=== PATIENT | female | born 1995 | race Caucasian/White ===

== ENCOUNTER 2020-09-29 13:05 | Emergency (ER) | payer MEDICAID, SELFPAY ==
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
[2020-09-29 13:21] VITALS: BP 138/62; PULSE 71; RESP 16; TEMP 36.2; O2SAT 100; BMI 40.8
[2020-09-29 14:19] LABS: MANUAL DIFF FLAG NO
[2020-09-29 14:20] LABS: Basophils Percent Auto 0.2 % (0-2); Eosinophils Absolute Auto 0.2 X10*3/uL (0.0-0.4); Eosinophils Percent Auto 1.6 % (0-4); Hematocrit 31.9 % (37-47); Hemoglobin 10.1 g/dl (12.0-16.0); Imm Gran Abs Auto 0.03 X10*3/uL (0.00-0.03); Imm Gran Pct Auto 0.3 % (0.0-0.4); Lymphocytes Percent Auto 21.3 % (20-40); Mean Corpuscular HGB Conc 31.7 g/dl (31.0-35.0); Mean Corpuscular Volume 75.8 fL (80-98); Mean Platelet Volume 9.5 fL (9.4-12.3); Monocytes Absolute Auto 0.6 X10*3/uL (0.1-1.2); Monocytes Percent Auto 6.5 % (2-11); Neutrophils Absolute Auto 6.4 X10*3/uL (2.0-8.3); Neutrophils Percent Auto 70.1 % (45-73); Platelet Count 280 X10*3/uL (160-400); Red Blood Count 4.21 X10*6/uL (4.20-5.50); Red Cell Distribution Width 15.9 % (11.0-16.0); White Blood Count 9.1 X10*3/uL (4.8-10.8)
[2020-09-29] MEDS: 0.9 % Sodium Chloride 1,000 ML 999 ML IV (14:22)
[2020-09-29 14:28] LABS: INTERNATIONAL NORM RATIO 1.2 (0.9-1.1); Prothrombin Time 14.1 SEC (9.9-13.0)
[2020-09-29 14:30] LABS: Partial Thromboplastin Time 38.3 SEC (24.1-38.0)
[2020-09-29 14:51] LABS: Alanine Aminotransferase 12 U/L (0-31); Albumin Level 3.7 g/dL (3.5-5.0); Alkaline Phosphatase 79 U/L (39-117); Anion Gap 12 (12-20); Aspartate Amino Transferase 11 U/L (5-31); Bilirubin Total 0.8 mg/dL (0.0-1.0); Blood Urea Nitrogen 13 mg/dL (9-16); Calcium 9.3 mg/dL (8.4-10.2); Carbon Dioxide 24 mmol/L (22-29); Chloride 109 mmol/L (96-108); Creatinine Clr Calc Pharmacy 184.8; Estimated Glomerular Filt Rate > 60; Glucose Random 96 mg/dL (60-115); Potassium 3.9 mmol/L (3.3-5.1); Sodium 141 mmol/L (135-145); Total Protein 7.5 g/dL (6.5-8.0)
[2020-09-29 14:57] LABS: HCG Quantitative < 2 mIU/mL
[2020-09-29] MEDS: Morphine Sulfate 2 MG/ML CARTRIDGE IVPUSH (15:27)
[2020-09-29] MEDS: iohexoL 350 MG/ML 100 ML INFUS..BTL IV (15:29)
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
[2020-09-29 17:09] LABS: Glucose Urine UA NEG (NEG); Leukocyte Esterase Urine NEG (NEG); Nitrite Urine NEG (NEG); Specific Gravity - Urine <= 1.005 (1.005-1.025); Urine Blood 3+ (NEG); Urine Ketones NEG (NEG); Urine Protein NEG (NEG-TRACE)
[2020-09-29 17:10] LABS: Appearance Urine HAZY; Color Urine STRAW
[2020-09-29 17:17] LABS: Squamous Epithelial Cell Urine 1+ /LPF; WBC Urine 0-2 /HPF (0-4)
[2020-09-29 18:31] VITALS: BP 122/74; PULSE 88; RESP 18
== END 2020-09-29 18:32 | disposition home or self-care (01) ==
PROVIDERS: Physician Assistant; Emergency Provider Emergency Medicine; PCP Internal Medicine
DX: S30.1XXD Contusion of abdominal wall, subsequent encounter (principal); S32.591D Other specified fracture of right pubis, subsequent encounter for fracture with routine healing; V89.2XXD Person injured in unspecified motor-vehicle accident, traffic, subsequent encounter
CPT/HCPCS: 36415; 74177; 80053; 81001; 84702; 85025; 85610; 85730; 96361; 96374; 99284; J2270; Q9967

== ENCOUNTER → 2020-10-08 11:38 | Outpatient (REF) | payer MEDICAID, SELFPAY ==
--- NOTE | 2020-10-08 11:45 | ECG_ITS ---
Hook-up date: 2020-10-08 12:05:00 Duration: 26:59:00 Test Indications: SYNCOPE Medications: [id number] QRS complexes 2 Ventricular ectopics which represent <1 % of total QRS comp. 1 Supraventricular ectopics which represent <1 % of total QRS comp. * Paced QRS complexs which represent % of total QRS comp. VENTRICULAR ECTOPY 2 Isolated 0 Bigeminal Cycles 0 Couplets 0 Runs 0 Beats in Runs * Beats LONGEST at * BPM at :: -- * Beats FASTEST at * BPM at :: -- SUPRAVENTRICULAR ECTOPY 1 Isolated 0 Couplets 0 Runs 0 Beats in Runs * Beats LONGEST at * BPM at :: -- * Beats FASTEST at * BPM at :: -- HEART RATES 51 MIN at 08:22:44 2020-10-09 85 AVG 152 MAX at 18:18:13 2020-10-08 LONGEST RR 1.4240 secs at 06:50:08 2020-10-09 S-T LEVELS Channel 1 - 128 mm at 12:05:00 2020-10-08 - 128 mm at 12:05:00 2020-10-08 Channel 2 - 128 mm at 12:05:00 2020-10-08 - 128 mm at 12:05:00 2020-10-08 Channel 3 - 128 mm at 03:12:41 -- - 128 mm at 03:12:41 Basic rhythm Normal sinus rhythm No long pause or profound bradycardia No dangerous dysrhythm periods Patient did not report any symptoms in the diary Referred By: Amna Monteiro Overread By: EVAN ROPER MD
== END ==
LOC: HO.CARD 11:38
PROVIDERS: Visit Provider Internal Medicine
DX: R55 Syncope and collapse (principal)
CPT/HCPCS: 93225; 93226

== ENCOUNTER 2020-11-04 10:09 | Outpatient (REF) | payer MEDICAID, SELFPAY ==
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
== END 2020-11-04 10:10 | disposition home or self-care (01) ==
LOC: HO.CT 10:09
PROVIDERS: Visit Provider Internal Medicine
DX: R55 Syncope and collapse (principal)
CPT/HCPCS: 70450

== ENCOUNTER 2020-12-03 13:12 | Outpatient (REF) | payer MEDICAID, SELFPAY ==
--- NOTE | 2020-12-03 | EEG_ITS ---
This is a 16-channel EEG with an EKG lead. The patient is reported awake during the tracing. Background EEG rhythm is about 16-20 Hertz or faster 5-30 microvolt posteriorly, lower amplitude fast anteriorly. Photic stimulation did not produce any significant abnormality. Hyperventilation was not performed. Cardiac lead did not reveal any significant abnormality. IMPRESSION: Unremarkable EEG. MD YOSI Cesar/CELIA / [id number]
== END 2020-12-03 13:13 | disposition home or self-care (01) ==
LOC: HO.NEURO 13:12
PROVIDERS: Visit Provider Internal Medicine
DX: R55 Syncope and collapse (principal)
CPT/HCPCS: 95816

== ENCOUNTER 2021-03-10 10:27 | Emergency (ER) | payer MEDICAID, SELFPAY ==
[2021-03-10 11:16] VITALS: BP 107/62; PULSE 66; RESP 18; TEMP 36.8; O2SAT 98; BMI 36.2
--- NOTE | 2021-03-10 12:04 | ED_ITS ---
HPI - General Adult General Chief complaint: Upper Respiratory Symptoms Stated complaint: earache/headache/sore throat Time Seen by Provider: 03/10/21 11:39 Source: patient Mode of arrival: ambulatory Limitations: no limitations History of Present Illness HPI narrative: 26-year-old female with no past medical history presents to ED for evaluation. Patient states over the weekend she was exposed to his family member was positive for COVID. She states her daughter and herself were exposed to a family member who was symptomatic. She states member called her this morning and informed that she was positive for COVID. Patient states having sore throat, ear pain, headache, and body ache. Patient denies any shortness of breath or coughing. Related Data Previous Rx's Medication Instructions Recorded oxycodone-acetaminophen 5 mg-325 1 tab PO TID PRN #9 tab 09/29/20 mg tablet (Percocet) Allergies Allergy/AdvReac Type Severity Reaction Status Date / Time No Known Allergies Allergy Unverified 12/13/19 17:33 [No Known Allergies*] Review of Systems Constitutional: Constitutional: Reports as per HPI, Reports no additional constitutional complaints, Reports body ache(s), Reports chills and Reports h eadache(s) Eyes: Eyes: Reports as per HPI and Reports no additional eye complaints ENT: Reports system reviewed and no additional complaints, except as documented, Reports as per HPI, Reports Normal hearing present, Reports otalgia, Reports headache(s) and Reports sore throat Cardiovascular: Cardiovascular: Reports as per HPI and Reports no additional cardiovascular complaints Respiratory: Respiratory: Reports as per HPI and Reports no additional respiratory complaints Gastrointestinal: Gastrointestinal: Reports as per HPI and Reports no additional gastrointestinal complaints Genitourinary: Genitourinary: Reports no additional female genitourinary complaints and Reports as per HPI Musculoskeletal: Musculoskeletal: Reports no additional musculoskeletal complaints and Reports as per HPI Neurologic: Reports system reviewed and no additional complaints, except as documented, Reports as per HPI, Reports Normal hearing present and Reports headache(s) Psychiatric: Psychiatric: Reports no additional psychiatric complaints and Reports as per HPI [facility] Past Medical History Medical History (Updated 03/10/21 @ 13:27 by SANJUANITA Moore) delivery delivered Social History Social History Advance Directives: No Advance Directives Information Provided: No Physical Exam Vital Signs: Vital Signs: Last Vital Signs Temp 97.9 F 03/10/21 12:34 Pulse 65 03/10/21 12:34 Resp 18 03/10/21 12:34 BP 109/70 03/10/21 12:34 Pulse Ox 99 03/10/21 12:34 BMI result Body Mass Index 36.2 Const: General: cooperative, healthy appearing, comfortable, no acute distress, well developed, alert, awake and Physically active Orientati on/consciousness: patient oriented x3 HENMT: Head: Yes normal to inspection, Yes No palpable skull fracture present, Yes normocephalic, Yes atraumatic and No abrasion Ears: hearing grossly normal bilaterally, external ears normal, TM's normal bilaterally, EAC's normal, mastoids normal and no periauricular adenopathy General nose exam: Normal external nose present and Normal nares present Face and sinus: Yes normal facial exam and Yes sinuses nontender Mouth: Normal oral and palatal mucosa present, lip normal and tongue normal Throat: Yes posterior oropharynx normal, Yes tonsils normal and Yes uvula midline Eyes: General: appearance normal, both eyes and all related structures Pupils: Equal, round and reactive pupils present Neck: Neck: Yes normal visual inspection, Yes full ROM, Yes no lymphadenopathy, Yes no meningeal signs, Yes trachea midline, Yes supple, No anterior neck swelling and No tender Chest: Chest palpation & inspection: normal inspection of the chest and normal palpation of entire chest wall Resp: Effort & Inspection: normal respiratory effort and able to speak in complete sentences Auscultation: clear to auscultation bilaterally Cardio: Jugular venous distension: no JVD Heart sounds: S1 normal heart sound present and S2 normal heart sound present GI: Inspection: Yes normal to inspection and No abdominal wall ecchymosis Palpation (GI): Soft to palpation, not firm, nontender, no guarding and not rigid : General: No CVA tenderness and Yes no CVA tenderness Back/Spine/Pelvis: Back: no CVA tenderness, No CVA tenderness and No back tenderness Skin: General skin exam: no rashes or lesions noted and elasticity normal Neuro: General: patient oriented x3, gait normal, tone normal, moves all extremities, Normal light touch and pain sensation, no meningeal signs and CN's II-XI intact bilaterally Cranial nerves: Yes CN's II-XII intact bilaterally, Yes Facial sensation intact/muscles of mastication intact, Yes Intact sense of smell present, Yes Equal, round and reactive pupils present, Yes Normal accommodation reflex present, Yes Bilaterally intact EOM present, Yes Nystagmus not present, Yes Normal facial strength present, Yes Midline tongue present, Yes Normal gag reflex present, Yes Symmetric palate elevation present and Yes Normal hearing present Cognition (Neuro): normal cognition Extrem: General: Yes normal to inspection and Yes full ROM Psych: Appearance: grossly normal, well kempt and not disheveled Course Course Course Narrative: Patient well-appearing. Patient tested for COVID and strep. Reevaluation(s) Reevaluation #1: Patient positive for COVID. Patient well appearing. Patient informed to self quarantine. Time: 13:25 Medical Decision Making MDM Narrative Medical decision making narrative: COVID Lab Data Labs: Lab Results 03/10/21 03/10/21 Range/Units 12:04 12:04 Influenza Type A (PCR) NEGATIVE (Negative) Influenza Type B (PCR) NEGATIVE (Negative) RSV RNA Qual (PCR) NEGATIVE (Negative) SARS-CoV-2 RNA (RT-PCR) POSITIVE A (Negative) S. pyogenes GrpA GAIL Negative (Negative) Discharge Plan Discharge Clinical Impression: COVID-19 Patient Disposition: Home, Self-Care Instructions: COVID-19 (Coronavirus Disease 2019) (ED) Additional Instructions: Eres positivo para COVID. Regrese al servicio de urgencias de inmediato si tiene dolor en el pecho, dificultad para respirar, debilidad, mareos, tos con kendall, hinchaz?n de las piernas, dolor en la pantorrilla, fiebre intratable, escalofr?os o cualquier otro s?ntoma preocupante. Recomendamos 14 d?as de autoaislamiento. Twila un seguimiento con el proveedor de atenci?n primaria. Prescriptions: No Action oxycodone-acetaminophen [Percocet] 5-325 mg tablet 1 tab PO TID PRN (Reason: pain) Qty: 9 RF: 0 Stand Alone Forms: Work/School Release Interventions: ED Discharge Assessment Last Done: 03/10/21 13:49 Discharge Date/Time: 03/10/21 13:50 Print Language: Kazakh
[2021-03-10 12:34] VITALS: BP 109/70; PULSE 65; RESP 18; TEMP 36.6; O2SAT 99
[2021-03-10 12:35] LABS: Strep A Nucleic Acid Negative (Negative)
[2021-03-10 13:04] LABS: Influenza A PCR NEGATIVE (Negative); Influenza B PCR NEGATIVE (Negative); Resp Syncy Virus RNA Qual PCR NEGATIVE (Negative); SARS COV2 PCR INHOUSE POSITIVE (Negative)
== END 2021-03-10 13:50 | disposition home or self-care (01) ==
PROVIDERS: Physician Assistant; Emergency Provider Emergency Medicine
DX: U07.1 COVID-19 (principal)
CPT/HCPCS: 0241U; 36415; 87651; 99283; 99284

== ENCOUNTER 2021-03-16 15:38 | Emergency (ER) | payer MEDICAID, SELFPAY ==
--- NOTE | ~2021-03-16 | XR_ITS ---
EXAMINATION: XR chest 2V CLINICAL INFORMATION: Reason for Exam Shortness of breath/chest pain positive COVID COMPARISON: No prior chest x-ray available in our system for comparison at the time of this dictation. TECHNIQUE: XR chest 2V Lungs and Radha: Both lungs are clear. Pleura: Normal. Costophrenic angles are sharp. No pneumothorax. Heart: The heart is normal in size. Mediastinum: The mediastinum is within normal limits.. Bones: Skeletal structures included are normal for patient's age. XR/XR chest 2V IMPRESSION: Normal chest x-ray.
--- NOTE | 2021-03-16 17:28 | ED.GENADULT ---
HPI - General Adult General Chief complaint: General Medical Stated complaint: +covid body aches,deydrated Time Seen by Provider: 03/16/21 17:23 Related Data Previous Rx's Medication Instructions Recorded oxycodone-acetaminophen 5 mg-325 1 tab PO TID PRN #9 tab 09/29/20 mg tablet (Percocet) Allergies Allergy/AdvReac Type Severity Reaction Status Date / Time No Known Allergies Allergy Unverified 12/13/19 17:33 [No Known Allergies*] [facility] Past Medical History Medical History (Updated 03/16/21 @ 22:32 by Khris York) delivery delivered Social History Social History Advance Directives: No Advance Directives Information Provided: No Patient : No Physical Exam Vital Signs: Vital Signs: Last Vital Signs Temp 98.8 F 03/16/21 17:29 Pulse 95 03/16/21 17:29 Resp 20 03/16/21 17:29 BP 135/87 03/16/21 17:29 Pulse Ox 97 03/16/21 17:29 BMI result Body Mass Index 41.8 Course Course Course Narrative: 17:30pm - 26-year-old female who recently tested positive to COVID on March 10 presenting to the ED with worsening symptoms which include fevers up to 106.0, headaches, dizziness, cough, nausea/vomiting, chest pain, shortness of breath. Denies any other symptoms. On exam she is alert and oriented x3. Not in any acute distress. Vital signs are stable within normal limits. No neuro deficits noted. Therefore at this time labs, EKG and chest x-ray ordered. Patient in the waiting room waiting for further evaluation and treatment emergency room. Discharge Plan Discharge Clinical Impression: COVID-19 Patient Disposition: Elopement Prescriptions: No Action oxycodone-acetaminophen [Percocet] 5-325 mg tablet 1 tab PO TID PRN (Reason: pain) Qty: 9 RF: 0 Interventions: LWBS Worksheet Last Done: 03/16/21 22:32 Discharge Date/Time: 03/16/21 22:32
[2021-03-16 17:29] VITALS: BP 135/87; PULSE 95; RESP 20; TEMP 37.1; O2SAT 97; BMI 41.8
== END 2021-03-16 22:32 | disposition left against medical advice (07) ==
PROVIDERS: Emergency Provider Emergency Medicine
DX: U07.1 COVID-19 (principal); M79.10 Myalgia, unspecified site
CPT/HCPCS: 71046; 99281; 99283

== ENCOUNTER 2022-10-22 19:09 | Outpatient (REF) | payer MEDICAID, SELFPAY ==
[2022-10-23 14:39] LABS: CT PCR NOT DETECTED (Not Detect.); NG PCR NOT DETECTED (Not Detect.)
== END 2022-10-22 19:10 | disposition home or self-care (01) ==
LOC: HO.HHCLNP 19:09
PROVIDERS: Visit Provider Internal Medicine
DX: R30.0 Dysuria (principal)
CPT/HCPCS: 0353U

== ENCOUNTER 2022-10-26 08:34 | Outpatient (REF) | payer MEDICAID, SELFPAY ==
[2022-10-26 11:46] LABS: Estimated Average Glucose 100 mg/dL; Hemoglobin A1c % 5.1 %
[2022-10-26 11:48] LABS: Cholesterol 172 mg/dL; HDL Cholesterol 51 mg/dL; LDL Cholesterol Calculated 108 mg/dl; Triglycerides 67 mg/dL
[2022-10-26 12:23] LABS: Anion Gap 15 (12-20); Blood Urea Nitrogen 12 mg/dL (9-16); Calcium 9.2 mg/dL (8.4-10.2); Carbon Dioxide 20 mmol/L (22-29); Chloride 109 mmol/L (96-108); Estimated Glomerular Filt Rate > 60; Glucose Random 98 mg/dL (60-115); Potassium 3.6 mmol/L (3.3-5.1); Sodium 140 mmol/L (135-145)
[2022-10-26 12:27] LABS: HBc Num1 0.39 S/CO (0.00-0.79); HBsAGNum1 0.38 S/CO (0.00-0.99); HIV AB/AG Nonreactive (Nonreactive); HIV Num 1 0.04 S/CO (0.00-0.99); Hepatitis B Core Antibody Nonreactive (Nonreactive); Hepatitis B Surface Antigen Negative (Negative); ~Hepatitis A Antibody IgM Nonreactive (Nonreactive); ~Hepatitis B Surface Antibody REACTIVE (Nonreactive); ~Hepatitis C Antibody Nonreactive (Nonreactive)
[2022-10-26 12:30] LABS: TSH reflex Free T4 0.66 uIU/mL (0.32-4.0)
[2022-10-26 13:45] LABS: Reflex LDLD? No
[2022-10-27 04:20] LABS: Syphilis Screen Nonreactive (Nonreactive)
[2022-10-28 15:47] LABS: TS Negative Control Passed; TS Panel A 0; TS Panel B 0; TS Positive Control Passed; TSpotTB Negative (Negative)
== END 2022-10-26 08:35 | disposition home or self-care (01) ==
LOC: HO.HHCL 08:34
PROVIDERS: Visit Provider Internal Medicine
DX: Z00.00 Encounter for general adult medical examination without abnormal findings (principal); L73.2 Hidradenitis suppurativa; N94.6 Dysmenorrhea, unspecified; E66.01 Morbid (severe) obesity due to excess calories; Z68.41 Body mass index [BMI] 40.0-44.9, adult
CPT/HCPCS: 36415; 80048; 80061; 83036; 84443; 86481; 86704; 86706; 86709; 86780; 86803; 87340; 87389

== ENCOUNTER 2022-12-27 18:01 | Outpatient (REF) | payer MEDICAID, SELFPAY ==
[2022-12-27 18:54] LABS: Influenza A PCR NEGATIVE (Negative); Influenza B PCR NEGATIVE (Negative); Resp Syncy Virus RNA Qual PCR NEGATIVE (Negative); SARS COV2 PCR INHOUSE NEGATIVE (Negative)
== END 2022-12-27 18:02 | disposition home or self-care (01) ==
LOC: HO.HHCLNP 18:01
PROVIDERS: Visit Provider Emergency Medicine
DX: R11.10 Vomiting, unspecified (principal); R19.7 Diarrhea, unspecified; Z11.52 Encounter for screening for COVID-19
CPT/HCPCS: 0241U

== ENCOUNTER 2023-04-05 19:29 | Outpatient (REF) | payer MEDICAID, SELFPAY ==
[2023-04-06 03:28] LABS: CT PCR NOT DETECTED (Not Detect.); NG PCR NOT DETECTED (Not Detect.)
[2023-04-06 09:54] LABS: BV Int Neg Control Negative (Negative); BV Int Pos Control Positive (Positive)
[2023-04-09 06:50] LABS: HPV mRNA E6/E7 rflx Not Detected (Not Detected)
== END 2023-04-05 19:30 | disposition home or self-care (01) ==
LOC: HO.HHCLNP 19:29
PROVIDERS: Visit Provider Internal Medicine
DX: B37.31 Acute candidiasis of vulva and vagina (principal)
CPT/HCPCS: 0353U; 87480; 87510; 87624; 87660; 88142